=== PATIENT | male | born 1995 | race Hispanic/Latino ===

== ENCOUNTER 2016-10-19 13:28 | Emergency (ER) | payer OTHER ==
[~2016-10-19] VITALS: Ht 180.3 cm; Wt 89.1 kg
[2016-10-19 13:32] VITALS: BP 135/73; PULSE 75; RESP 14; O2SAT 99
--- NOTE | 2016-10-19 13:36 | ED.REPORT ---
HPI-Abd Pain M Under 39 Date of Service Oct 19, 2016 ED Provider: Clement Nascimento MD The patient is an otherwise healthy male who presents to the emergency department complaining of vomiting that began last night. The patient drank three alcoholic beverages last night. He does not normally drink alcohol. Soon after he arrived to the emergency department today he developed LLQ abdominal pain. His pain is currently a 9/10. He denies flank pain, dysuria or hematuria. Nursing Notes Stated Complaint: THROWING UP Chief Complaint: Male Abdominal Pain Nursing Notes Reviewed: Yes Allergies: Coded Allergies: No Known Allergies (Unverified , 10/19/16) General Time Seen by MD: 13:34 Chief Complaint Vomiting moderate (patient states left side abd pain started after arriving in the ER) Hx Obtained From: Patient Arrived By: Walk-in Sudden in Onset?: Yes Onset Occurred: Yesterday Context of Onset: EtOH use Symptom Duration: Since onset Progression since Onset: Constant Location: : LLQ Quality: Painful Radiation: : Does not radiate Severity: Current: Severe Severity: Maximum: Severe Recent Healthcare: No recent doctor visit, No recent hospitalization Similar Sx Previous: No Past Medical History Past Medical History Chronic upper back pain Asthma Reports: Asthma (last used inhaler 2 years ago) Past Surgical History Foot surgery as a child Family History Noncontributory Smoking History Light Tobacco Smoker (1 cigarette per month) Social History drank 3 drinks of rum celebrating sister's birthday last evening. ate a meal of beans and steak before drinking. typically drinks 2 times a year Alcohol Use: "Social" Drug Use: THC Other Social History: Good social support, Lives with parents, Local resident Occupation [employer] 10/19/2016 Ambulatory Status Independent Review of Systems Basic Review of Systems Eyes: Vision NL, No discharge ENT: Hearing NL, No pain, No nasal congestion, No pharyngeal pain Hematologic: No bleeding, No bruising Endocrine: No cold intolerance, No heat intolerance, No weight gain, No weight loss Skin: No bruising, No rash, No itch Allergy / Immune: No allergy Neurologic: NL mental status, No weakness, No numbness Psychiatric: Normal thought content GI: Reports: Abdominal pain, Nausea, Vomiting Male: Denies Dysuria, Denies Flank pain, Denies Hematuria Complete sys rev & neg: except as marked. Physical Exam Initial Vital Signs Vital Signs (First) Date Time Temp Pulse Resp B/P Pulse Ox O2 Delivery O2 Flow Rate FiO2 10/19/16 13:32 36.8 75 14 135/73 99 Room Air Initial VS: Reviewed, Vital signs normal Head / Eyes: Atraumatic, Normocephalic, PERRL ENT: Mucous membranes moist, Conjunctiva normal, No scleral icterus Neck: Supple, Non-tender, Full range of motion Lymphatic: No lymphadenopathy Extremities: Vascular intact, Neuro intact, No swelling, No tenderness Skin: Warm, Dry, No cyanosis Neurologic: Alert, Oriented, Nonfocal Psychiatric: Mood/affect normal, Behavior normal, Normal thought content General/Constitutional: Awake, Alert, No acute distress, Well appearing Appearance / Presentation: Positive: Pale Respiratory / Chest: Atraumatic, Breath sounds NL, Breath sounds = bilat, No respiratory distress, No rales, No rhonchi, No wheezing, No stridor Cardiovascular: Heart rate NL, Regular rhythm, Heart sounds NL, Peripheral circulation NL Abdomen: Atraumatic, Soft, No guarding, No rebound Bowel Sounds / Distention: Positive: Bowel sounds hypoactive point tender left lower quadrant Back: Atraumatic, Inspection NL, Full range of motion Flank / Spine / Paraspinal: Negative: Flank tender L, Flank tender R upper back chronic pain Head / Eyes: Atraumatic, Normocephalic, PERRL, EOMI ENT: Atraumatic, Airway patent, Mucous membranes moist, Pharynx NL Interpretation & Diagnostics Lab Results Interpretation Result Diagram: 10/19/16 1409 10/19/16 1409 Test 10/19/16 14:05 10/19/16 14:09 10/19/16 16:56 Hold Garcia Top Tube Received (Received) White Blood Count 9.6th/mm3 (3.8-10.1) Red Blood Count 4.84mil/mm3 (4.40-5.80) Hemoglobin 15.2g/dL (13.8-17.2) Hematocrit 43.8% (41.0-50.0) Mean Corpuscular Volume 90.5fL (81-100) Mean Corpuscular Hemoglobin 31.4pg (27.0-35.0) Mean Corpuscular Hemoglobin Concent 34.7% (32.0-37.0) Red Cell Distribution Width 12.7% (12.3-15.4) Platelet Count 254bil/L (150-400) Neutrophils (%) (Auto) 87.6% (40-74) Lymphocytes (%) (Auto) 7.6% (14-46) Monocytes (%) (Auto) 4.6% (4-12) Eosinophils (%) (Auto) 0% (0-5) Basophils (%) (Auto) 0.1% (0-3) Sodium Level 139mEq/L (134-144) Potassium Level 4.0mEq/L (3.5-5.2) Chloride Level 99mEq/L (97-108) Carbon Dioxide Level 20mmol/L (18-29) Blood Urea Nitrogen 14mg/dL (6-20) Creatinine 0.56mg/dL (0.76-1.27) Estimat Glomerular Filtration Rate 196mL/min (>59) Glucose Level 101mg/dL (60-99) Calcium Level 9.5mg/dL (8.5-10.1) Magnesium Level 1.9mg/dL (1.6-2.6) Total Bilirubin 0.8mg/dL (0.0-1.2) Aspartate Amino Transf (AST/SGOT) 26U/L (0-50) Alanine Aminotransferase (ALT/SGPT) 23U/L (0-44) Alkaline Phosphatase 66U/L (25-150) Total Protein 8.3g/dL (6.4-8.4) Albumin 4.9g/dL (3.4-5.0) Lipase 15U/L (13-60) Urine Color Yellow (YELLOW) Urine Appearance Clear (CLEAR,HAZY) Urine pH 7.0 (5.0-8.0) Urine Specific [place] <1.005 (1.003-1.035) Urine Protein Negativemg/dL (NEG,TRACE) Urine Glucose (UA) Negativemg/dL (NEGATIVE) Urine Ketones 40mg/dL (NEGATIVE) Urine Occult Blood Negative (NEGATIVE) Urine Nitrite Negative (NEGATIVE) Urine Bilirubin Negative (NEGATIVE) Urine Urobilinogen Normalmg/dL (NORMAL) Urine Leukocyte Esterase Negative (NEGATIVE) Urine RBC 0-2/hpf (0-2) Urine WBC 0-5/hpf (0-5) Urine Epithelial Cells Occasional/hpf (NONE-MOD) Urine Crystals None seen (NONE SEEN) Urine Bacteria None/hpf (NONE-FEW) Urine Hyaline Casts None/lpf (NONE) Urine Granular Casts None seen (NONE SEEN) Urine Waxy Casts None seen (NONE SEEN) Urine Red Blood Cell Casts None seen (NONE SEEN) Urine White Blood Cell Casts None seen (NONE SEEN) Urine Mucus None seen (None Seen) Urine Trichomonas None seen (NONE SEEN) Urine Yeast None (NONE SEEN) Urinalysis Comment None Urine Culture Reflexed Not indicated Lab Results Interpretation: urine is negative CT Abd / Pelvis Interpretation After the administration of intravenous contrast, 5 mm thick sections acquired from the diaphragm to the symphysis. 5 mm coronal and sagittal reformats were acquired. For radiation dose reduction, the following was used: automated exposure control, adjustment of mA and/or kV according to patient size. COMPARISON: None. FINDINGS: Image quality: Excellent. ABDOMEN: Lung bases: Lung bases are clear. Heart size is normal. Solid organs: Liver and spleen are normal in size and enhancement. Gallbladder is within normal limits. Biliary system is non dilated. Pancreas enhances normally. No adrenal nodules. Kidneys demonstrate normal size and enhancement, without hydronephrosis. Peritoneum and bowel: Bowel loops demonstrate normal wall thickness and caliber. No free fluid or air. Normal appendix. Nodes and vessels: No retroperitoneal or mesenteric adenopathy by size criteria. Mildly prominent mesenteric lymph nodes are present within the abdomen and pelvis. Aorta and inferior vena cava are normal in size. Miscellaneous: No ventral hernias. PELVIS: Genitourinary: Bladder wall thickness is normal. Miscellaneous: No inguinal hernias or adenopathy. Bones: No suspicious bony lesions. No vertebral body compression fractures. IMPRESSION: 1. Mildly prominent mesenteric lymph nodes, suggestive of mesenteric adenitis. 2. Normal appendix. Dictated by: Emre Randhawa M.D. on 10/19/2016 at 15:17 Approved by: Emre Randhawa M.D. on 10/19/2016 at 15:18 Re-Eval/Medical Decision Med Decision/Clinical Course patient needad an additional dose of zofran to decrease the nausea, able to urinate after 2nd liter. Patient reporting feeling much better. able to drink water without vomiting. Discussed CT findings and reasons to return Source of Hx: Old records, Family Counseled Regarding: Diagnosis, Lab results Patient Discharge & Departure Primary Impression: Vomiting alone Vomiting type: unspecified Vomiting Intractability: unspecified Qualified Code: R11.11 - Vomiting without nausea Additional Impression: Acute mesenteric adenitis Disposition: Home Discharge Condition All VS Reviewed: Yes Condition: Stable Patient Instructions: Acute Nausea and Vomiting (ED), High Fiber Diet (ED) Additional Instructions: Thank you for seeking care at the emergency room. It is difficult for us to make definitive diagnoses in the ED but we believe that you are experiencing viral vomiting and mesentric adenitis Our primary goal today in the ED was to evaluate you for any life-threatening conditions. Your evaluation was reassuring. You will be discharged with a prescription for zofran. You should follow-up with your primary doctor in the next week. You should return to the ED immediately if you develop fevers, vomiting not controlled with zofran, cough, shortness of breath, chest pain, lightheadedness , weakness or any other concerning signs or symptoms. Thank you for letting us partake in your care today. The labs are normal. Your urine looks good. The CT does not show any abnormalities except mild enlarged lymph nodes on the left side, were your pain is. You are able to hold down water without vomiting. You are looking much better and are reporting feeling better. Note for off work Thursday and Thursday, returning on Thursday. Establish in primary care, consider the residency clinic. Referrals: [facility] Provider for APC: Clement Nascimento MD Attestation Portions of this note were transcribed by Raquel Young. I, Dr. Nascimento personally performed the history, physical exam and medical decision-making; I reviewed and confirmed the accuracy of the information in the transcribed note. Signed by: Jaki Sood, 10/19/2016 and 1500. Attending Statement Attending attestation: I saw this patient in conjunction with Gifty GONZALEZ. I agree with the workup, evaluation, treatment and disposition. Clement Nascimento MD copies to: [facility] Clement Nascimento MD Oct 19, 2016 13:36 Raquel Young Oct 19, 2016 13:52 Gifty Nova Oct 19, 2016 14:56
[2016-10-19] MEDS ORDERED: 0.9% Sodium Chloride 1,000 ML IV ONE ×2 (13:38→15:00)
[2016-10-19] MEDS ORDERED: Ondansetron 2 mg/mL 2 mL Inj IVPUSH ONE ×2 (13:40→15:00)
[2016-10-19] MEDS ORDERED: HYDROmorphone 1 mg/mL Inj IVPUSH ONE (13:50)
[2016-10-19 14:33] LABS: BASOPHILS % (AUTO) 0.1 % (0-3); EOSINOPHILS % (AUTO) 0 % (0-5); MONOCYTES % (AUTO) 4.6 % (4-12); Mean Corpuscular Hemoglobin 31.4 pg (27.0-35.0); Mean Corpuscular Volume 90.5 fL (81-100); NEUTROPHILS % (AUTO) 87.6 % (40-74); Platelet Count 254 bil/L (150-400)
[2016-10-19 14:43] LABS: Magnesium 1.9 mg/dL (1.6-2.6)
[2016-10-19 15:00] VITALS: BP 132/68; PULSE 76; RESP 16; O2SAT 99
--- NOTE | 2016-10-19 15:19 | DRSVH ---
PROCEDURE: CT ABDOMEN AND PELVIS WITH CONTRAST ([id number]) INDICATIONS: abd pain TECHNIQUE: After the administration of intravenous contrast, 5 mm thick sections acquired from the diaphragm to the symphysis. 5 mm coronal and sagittal reformats were acquired. For radiation dose reduction, the following was used: automated exposure control, adjustment of mA and/or kV according to patient siz e. COMPARISON: None. FINDINGS: Image quality: Excellent. ABDOMEN: Lung bases: Lung bases are clear. Heart size is normal. Solid organs: Liver and spleen are normal in size and enhancement. Gallbladder is within normal lazo its. Biliary system is non dilated. Pancreas enhances normally. No adrenal nodules. Kidneys demon strate normal size and enhancement, without hydronephrosis. Peritoneum and bowel: Bowel loops demonstrate normal wall thickness and caliber. No free fluid or a ir. Normal appendix. Nodes and vessels: No retroperitoneal or mesenteric adenopathy by size criteria. Mildly prominent m esenteric lymph nodes are present within the abdomen and pelvis. Aorta and inferior vena cava are nor mal in size. Miscellaneous: No ventral hernias. PELVIS: Genitourinary: Bladder wall thickness is normal. Miscellaneous: No inguinal hernias or adenopathy. Bones: No suspicious bony lesions. No vertebral body compression fractures. IMPRESSION: 1. Mildly prominent mesenteric lymph nodes, suggestive of mesenteric adenitis. 2. Normal appendix. Dictated by: Emre Randhawa M.D. on 10/19/2016 at 15:17 Approved by: Emre Randhawa M.D. on 10/19/2016 at 15:18
[2016-10-19 17:13] LABS: APPEARANCE,URINE CLEAR (CLEAR,HAZY); COLOR,URINE YELLOW (YELLOW); OCCULT BLOOD,URINE NEGATIVE (NEGATIVE); UROBILINOGEN,URINE NORMAL (NORMAL)
[2016-10-19 17:15] VITALS: BP 124/68; PULSE 110; O2SAT 99
== END 2016-10-19 17:15 | disposition home or self-care (01) ==
LOC: SED 13:28
DX: R11.11 Vomiting without nausea (principal); I88.0 Nonspecific mesenteric lymphadenitis; J45.909 Unspecified asthma, uncomplicated; F17.200 Nicotine dependence, unspecified, uncomplicated
CPT/HCPCS: 36415; 74177; 80053; 81000; 83690; 83735; 85025; 96361; 96374; 96375; 96376; 99285; J1170; J2405; J7030; Q9967